=== PATIENT | male | born 1980 | race Caucasian/White ===

== ENCOUNTER 2018-02-06 00:39 | Inpatient (IN) ==
[2018-02-06 01:40] LABS: Bilirubin,Urine Negative (Negative); Blood,Urine Negative (Negative); Clarity,Urine Clear (Clear); Color,Urine Yellow (Yellow); Glucose,Urine (UA) Normal (Normal); Ketones,Urine Negative (Negative); Leukocyte Esterase,Urine Negative (Negative); Nitrite,Urine Negative (Negative); Protein,Urine Negative (Neg-Trace); Specific Gravity,Urine 1.018 (1.010-1.025); Urobilinogen,Urine Normal (Normal)
[2018-02-06 01:52] LABS: Amphetamine Screen,Urine Positive ng/mL (Cutoff=1000); Barbiturate Screen,Urine Negative ng/mL (Cutoff=200); Benzodiazepines Screen,Urine Negative ng/mL (Cutoff=200); Cannabinoid Screen,Urine Negative ng/mL (Cutoff = 50); Cocaine Screen,Urine Negative ng/mL (Cutoff= 300); Opiate Screen,Urine Negative ng/mL (Cutoff=300); Phencyclidine Screen,Urine Negative ng/mL (Cutoff=25)
[2018-02-06 01:52] LABS: Basophils # 0.1 K/mcL (0.0-0.2); Basophils % 0.8 %; Eosinophils # 0.1 K/mcL (0.0-0.6); Eosinophils % 1.2 %; Hematocrit 43.1 % (37.5-50.1); Hemoglobin 14.7 g/dL (12.9-16.9); Immature Granulocytes % 0.2 % (0-4); Lymphocytes % 21.6 %; Mean Corpuscular HGB Conc 34.1 g/dL (31.6-35.5); Mean Corpuscular Hemoglobin 30.2 pg (28.0-33.3); Mean Corpuscular Volume 88.7 fL (83.0-100.0); Mean Platelet Volume 10.6 fL (9.4-12.4); Monocytes # 0.5 K/mcL (0.0-1.3); Monocytes % 5.5 %; Neutrophils # 6.5 K/mcL (1.6-8.9); Platelet Count 285 K/mcL (140-400); Red Blood Count 4.86 M/mcL (4.19-5.50); Red Cell Distribution Width 11.9 % (11.5-14.5); Segmented Neutrophils % 70.7 %
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
[2018-02-06 02:23] LABS: Acetaminophen < 10 mcg/mL (10-20); BUN/Creatinine Ratio 17 (6-26); Blood Urea Nitrogen 13 mg/dL (6-20); Calcium 9.3 mg/dL (8.6-10.3); Carbon Dioxide 27 mEq/L (23-29); Chloride 104 mEq/L (98-107); Ethanol < 10 mg/dL (Less than 10); Glucose 108 mg/dL (70-105); Osmolality,Calculated 283 (280-300); Potassium 3.6 mEq/L (3.5-5.1); Salicylate < 2.5 mg/dL (15.0-30.0); Sodium 136 mEq/L (136-145); eGFR For Non-African Americans > 60 (> 60)
--- NOTE | 2018-02-06 03:52 | Emergency Department Note ---
Disposition Clinical Impression: Paranoia Disposition: Admitted As Inpatient Condition: Good General Adult HPI - General Chief complaint: ED Overdose Stated complaint: meth use/SI Time Seen by Provider: 02/06/18 00:42 Source: patient, EMS Limitations: no limitations Nursing Notes Reviewed: Yes Vital Signs Reviewed: Yes - History of Present Illness Pain Scale: 0 - Related Data Home Medications Medication Instructions Recorded Confirmed Buspirone HCl [Buspar] 15 mg PO TID 08/18/17 02/06/18 Paroxetine [Paxil] 40 mg PO DAILY 08/18/17 02/06/18 Previous Rx's Medication Instructions Recorded Propranolol HCl [Inderal LA] 160 mg PO DAILY #60 cap.sa.24h 03/24/17 risperiDONE [RisperDAL] 1 mg PO DAILY #60 tablet 03/24/17 Allergies Allergy/AdvReac Type Severity Reaction Status Date / Time meloxicam [From Mobic] Allergy See Verified 09/01/17 21:25 Comments Past Medical History - Past Medical History Medical history: Reports: hepatitis, hypertension, liver disease Surgical history: Reports: no surgical history Psychiatric history: Reports: depression - Social History Smoking Status: Current every day smoker Smokeless Tobacco Status: No Alcohol use: Reports: none Drug use: Reports: methamphetamine Physical Exam - General Limitations: no limitations General appearance: alert, in no apparent distress Course Vital Signs Temperature 98.7 F 02/06/18 00:43 Pulse Rate 96 02/06/18 00:43 Respiratory Rate 18 02/06/18 00:43 Blood Pressure 145/92 02/06/18 00:43 O2 Sat by Pulse Oximetry 99 02/06/18 00:43 Temperature 97.9 F 02/06/18 09:00 Pulse Rate 93 02/06/18 09:00 Respiratory Rate 18 02/06/18 09:00 Blood Pressure 121/70 02/06/18 09:00 O2 Sat by Pulse Oximetry 99 02/06/18 00:43 Oxygen Delivery Oxygen Delivery Room Air Medical Decision Making - Lab Data Lab results reviewed: Yes I reviewed the patient's lab results. Result diagrams: 02/06/18 01:43 02/06/18 01:43 Lab Results 02/06/18 02/06/18 02/06/18 Range/Units 01:10 01:10 01:43 WBC 9.2 (4.3-11.1) K/mcL RBC 4.86 (4.19-5.50) M/mcL Hgb 14.7 (12.9-16.9) g/dL Hct 43.1 (37.5-50.1) % MCV 88.7 (83.0-100.0) fL MCH 30.2 (28.0-33.3) pg MCHC 34.1 (31.6-35.5) g/dL RDW 11.9 (11.5-14.5) % Plt Count 285 (140-400) K/mcL MPV 10.6 (9.4-12.4) fL Immature Gran % 0.2 (0-4) % Seg Neutrophils % 70.7 % Lymphocytes % 21.6 % Monocytes % 5.5 % Eosinophils % 1.2 % Basophils % 0.8 % Neutrophils # 6.5 (1.6-8.9) K/mcL Lymphocytes # 2.0 (0.6-4.6) K/mcL Monocytes # 0.5 (0.0-1.3) K/mcL Eosinophils # 0.1 (0.0-0.6) K/mcL Basophils # 0.1 (0.0-0.2) K/mcL Sodium (136-145) mEq/L Potassium (3.5-5.1) mEq/L Chloride (98-107) mEq/L Carbon Dioxide (23-29) mEq/L BUN (6-20) mg/dL Creatinine (0.70-1.30) mg/dL Est GFR ( Amer) (> 60) Est GFR (Non-Af Amer) (> 60) BUN/Creatinine Ratio (6-26) Glucose (70-105) mg/dL Calculated Osmolality (280-300) Calcium (8.6-10.3) mg/dL Urine Color Yellow (Yellow) Urine Clarity Clear (Clear) Urine pH 8.0 (5.0-8.0) pH Units Ur Specific [place] 1.018 (1.010-1.025) Urine Protein Negative (Neg-Trace) mg/dL Urine Glucose (UA) Normal (Normal) mg/dL Urine Ketones Negative (Negative) mg/dL Urine Blood Negative (Negative) Urine Nitrite Negative (Negative) Urine Bilirubin Negative (Negative) Urine Urobilinogen Normal (Normal) mg/dL Ur Leukocyte Esterase Negative (Negative) Salicylates (15.0-30.0) mg/dL Urine Opiates Screen Negative (Flpuci=345) ng/mL Acetaminophen (10-20) mcg/mL Ur Barbiturates Screen Negative (Pqhwaw=071) ng/mL Ur Phencyclidine Scrn Negative (Cutoff=25) ng/mL Ur Amphetamines Screen Positive H (Ndumjq=1088) ng/mL U Benzodiazepines Scrn Negative (Aijdvk=783) ng/mL Urine Cocaine Screen Negative (Cutoff= 300) ng/mL U Marijuana (THC) Screen Negative (Cutoff = 50) ng/mL Ur Drug Screen Interp See Below Ethyl Alcohol (Less than 10) mg/dL 02/06/18 Range/Units 01:43 WBC (4.3-11.1) K/mcL RBC (4.19-5.50) M/mcL Hgb (12.9-16.9) g/dL Hct (37.5-50.1) % MCV (83.0-100.0) fL MCH (28.0-33.3) pg MCHC (31.6-35.5) g/dL RDW (11.5-14.5) % Plt Count (140-400) K/mcL MPV (9.4-12.4) fL Immature Gran % (0-4) % Seg Neutrophils % % Lymphocytes % % Monocytes % % Eosinophils % % Basophils % % Neutrophils # (1.6-8.9) K/mcL Lymphocytes # (0.6-4.6) K/mcL Monocytes # (0.0-1.3) K/mcL Eosinophils # (0.0-0.6) K/mcL Basophils # (0.0-0.2) K/mcL Sodium 136 (136-145) mEq/L Potassium 3.6 (3.5-5.1) mEq/L Chloride 104 (98-107) mEq/L Carbon Dioxide 27 (23-29) mEq/L BUN 13 (6-20) mg/dL Creatinine 0.76 (0.70-1.30) mg/dL Est GFR ( Amer) > 60 (> 60) Est GFR (Non-Af Amer) > 60 (> 60) BUN/Creatinine Ratio 17 (6-26) Glucose 108 H (70-105) mg/dL Calculated Osmolality 283 (280-300) Calcium 9.3 (8.6-10.3) mg/dL Urine Color (Yellow) Urine Clarity (Clear) Urine pH (5.0-8.0) pH Units Ur Specific [place] (1.010-1.025) Urine Protein (Neg-Trace) mg/dL Urine Glucose (UA) (Normal) mg/dL Urine Ketones (Negative) mg/dL Urine Blood (Negative) Urine Nitrite (Negative) Urine Bilirubin (Negative) Urine Urobilinogen (Normal) mg/dL Ur Leukocyte Esterase (Negative) Salicylates < 2.5 L (15.0-30.0) mg/dL Urine Opiates Screen (Kesypx=203) ng/mL Acetaminophen < 10 L (10-20) mcg/mL Ur Barbiturates Screen (Hgcjss=712) ng/mL Ur Phencyclidine Scrn (Cutoff=25) ng/mL Ur Amphetamines Screen (Wbyzwh=5192) ng/mL U Benzodiazepines Scrn (Qhkeob=857) ng/mL Urine Cocaine Screen (Cutoff= 300) ng/mL U Marijuana (THC) Screen (Cutoff = 50) ng/mL Ur Drug Screen Interp Ethyl Alcohol < 10 (Less than 10) mg/dL Attestation Statement - Attestation Attestation: I, Kalpesh Trent MD, personally evaluated this patient and discussed their management with the midlevel provicer, [employer]. I reviewed the midlevel provider 's note and agree with the documented findings, medical decision making, and plan of care. 37-year-old male presents to the emergency department complaining of paranoid ideations. He denies any suicidal or homicidal ideation. He denies visual or auditory hallucinations. Patient states that he is just having fearful thoughts and feels that everyone is out to get him an everyone is against him. On examination patient is a well-developed well-nourished well-appearing male in no acute distress. He is alert and oriented 3. There is no cyanosis or diaphoresis. Breath sounds are clear and equal bilaterally. Heart regular rate and rhythm. Abdomen soft and nontender with normal bowel sounds. No gross focal neurological deficits. Labs reviewed. Patient medically cleared for psychiatric evaluation. [address] psychiatry department was consulted and evaluated the patient in the emergency department and patient is being admitted to the [address] psychiatric unit. Castella slip signed.
[2018-02-06] MEDS ORDERED: *HR* LORazepam 1 MG TABLET PO PRN (04:30)
[2018-02-06] MEDS ORDERED: Mag Hydrox/Al Hydrox/Simeth 30 ML UDC PO PRN (04:30)
[2018-02-06] MEDS ORDERED: *HR* LORazepam 2 MG/ML VIAL IM PRN (04:30)
[2018-02-06] MEDS ORDERED: Haloperidol Lactate 5 MG/ML VIAL IM PRN (04:30)
[2018-02-06] MEDS ORDERED: MOM Conc 10 ML UD.LIQ PO PRN (04:30)
[2018-02-06] MEDS: risperiDONE 1 MG TABLET PO SCH (09:47)
[2018-02-06] MEDS: Nicotine 21 MG PATCH.TD24 TD SCH (09:47)
[2018-02-06] MEDS: hydrOXYzine pamoate 25 MG CAPSULE PO PRN ×2 (09:50→21:49)
--- NOTE | 2018-02-06 11:19 | Psychiatry History & Physical ---
Date of Encounter: 02/06/18 Time of Encounter: 11:13 History of Present Illness Patient Stated Chief Complaint: paranoia Medicare Admission Attestation: For traditional Medicare patients the provided hospital inpatient services are reasonable and necessary and in the case of services not specified as inpatient -only under 42 CFR 419.22 (n), that they are appropriately provided as inpatient services in accordance 42 CFR 412.3. For Critical Access Hospital the patient may reasonably be expected to be discharged or transferred to a hospital within 96 hours after admission to the Critical Access Hospital. Admitted From: Home Plans for Post Hospital Care: Home History of Present Illness: Mr. Matias is a 37 year old male who was admitted secondary to depression and paranoia. States he did meth a few days ago. Struggles with paranoia at baseline and amphetamines made symptoms worse. Denies AH/VH. Also denies SI but reports symptoms of not wanting to do anything, struggling to take care of himself, struggling to bathe, etc. Claims he has had mental health issues his entire life but that he was never treated prior to going to assisted. States he was diagnosed with depression in assisted and given Inderal, Risperdal, and "a couple others I can't remember the names of." States meds helped him. Did not follow up or continue meds once released from assisted approx 9 months ago. Father and sister have since his release adding to his depression. Client denies AOD use beyond recent meth use and taking Suboxone. States he is physically healthy except for Hep C and HTN. Willing to start an antidepressant in addition to the Risperdal which has already been ordered. Past Med Surg Social Fam HX - Past Medical History Medical history: hepatitis, hypertension, liver disease - Past Psychiatric History Psychiatric history: Reports: depression Family psychiatric history: Unknown Family History of Suicide: Unknown - Past Surgical History Surgical History: no surgical history - Social History Smoking Status: Current every day smoker Smokeless Tobacco Status: No Alcohol use: none Drug use: methamphetamine Medications & Allergies Propranolol HCl [Inderal LA] 160 mg PO DAILY #60 cap.sa.24h 03/24/17 [Rx] risperiDONE [RisperDAL] 1 mg PO DAILY #60 tablet 03/24/17 [Rx] Acetaminophen [Tylenol] 500 mg PO Q6HR PRN #20 tablet 08/08/17 [Rx] predniSONE [PredniSONE] 20 mg PO BID #10 tablet 08/08/17 [Rx] Benztropine Mesylate 0.5 mg PO HS 08/18/17 [History] Buspirone HCl [Buspar] 15 mg PO TID 08/18/17 [History] Ibuprofen [Motrin] 600 mg PO Q8HR PRN #20 tab 08/18/17 [Rx] Paroxetine [Paxil] 40 mg PO DAILY 08/18/17 [History] Venlafaxine HCl [Venlafaxine HCl ER] 37.5 mg PO DAILY 08/18/17 [History] Propranolol HCl [Inderal LA] 160 mg PO DAILY #30 cap.sa.24h 09/01/17 [Rx] Clotrimazole 1% CRM [Lotrimin 1%] 1 appl TP BID 14 Days #1 tube 01/09/18 [Rx] predniSONE [PredniSONE] 1 each PO DAILY 12 Days tablet 01/09/18 [Rx] 3 Allergy/AdvReac Type Severity Reaction Status Date / Time meloxicam [From [facility]] Allergy See Verified 09/01/17 21:25 Comments Review of Systems Constitutional: Denies: fever, chills, weakness, weight change Eyes: Denies: eye pain, vision change Ears, Nose, Throat: Denies: ear pain, throat pain, dental pain, hearing loss, congestion Cardiovascular: Denies: chest pain, palpitations, dyspnea on exertion Respiratory: Denies: cough, dyspnea, wheezes Gastrointestinal: Denies: abdominal pain, nausea, vomiting, diarrhea, constipation Genitourinary male: Denies: urgency, dysuria, frequency, genital lesions Musculoskeletal: Denies: joint swelling, joint pain Integumentary: Denies: rash, lesions, pruritus Neurological: Denies: headache, weakness, numbness, memory loss Endocrine: Denies: fatigue, heat or cold intolerance Hematologic/Lymphatic: Denies: easy bruising, lymphadenopathy Allergic/Immunologic: Denies: urticaria, itchy eyes Exam - HEENT Head exam IM: Present: atraumatic Eye exam IM: Present: EOMI, normal appearance, PERRL ENT exam IM: Present: normal exam - Neurological Neurological exam: Present: CN II-XII intact - Respiratory Respiratory exam IM: Present: CTAB - GI/Abdominal GI/Abdominal exam IM: Present: normal bowel sounds, soft. Absent: tenderness - Extremities Extremities exam IM: Present: full ROM - Skin Skin exam IM: Present: dry, warm - Constitutional Vitals: Temp Pulse Resp BP Pulse Ox 97.9 F 93 18 121/70 99 02/06/18 09:00 02/06/18 09:00 02/06/18 09:00 02/06/18 09:00 02/06/18 00:43 General appearance: age & developmentally appropriate - Musculoskeletal Gait: normal Station: relaxed Strength & Tone: normal for patient - Psychiatric Patient Orientation: Yes Person, Yes Time, Yes Place Level of alertness: Alert Behavior: calm, cooperative Psychomotor activity: Normal Eye Contact: Minimal Contact Mood Description: Depressed Affect description: congruent with mood Speech Volume: Normal Speech pattern: normal rate, normal rhythm, normal tone, fluent, spontaneous Language & Vocabulary: consistent with education Thought Process: Linear Thought Content: No Suicidal ideation, No Homicidal ideation, Yes Paranoid delusion Perceptual Disturbances: No Auditory hallucinations, No Visual hallucinations Attention Span Ability: Capable of Focused Attention Memory Description: Grossly Intact Patient Reliability: Reliable Historian Fund of knowledge: Yes abstraction ability, Yes average, Yes aware of current events Intelligence Estimate: Below Average Judgment: Limited Insight: Partial Results - Labs Labs: Laboratory Last Values WBC 9.2 K/mcL (4.3-11.1) 02/06/18 01:43 RBC 4.86 M/mcL (4.19-5.50) 02/06/18 01:43 Hgb 14.7 g/dL (12.9-16.9) 02/06/18 01:43 Hct 43.1 % (37.5-50.1) 02/06/18 01:43 MCV 88.7 fL (83.0-100.0) 02/06/18 01:43 MCH 30.2 pg (28.0-33.3) 02/06/18 01:43 MCHC 34.1 g/dL (31.6-35.5) 02/06/18 01:43 RDW 11.9 % (11.5-14.5) 02/06/18 01:43 Plt Count 285 K/mcL (140-400) 02/06/18 01:43 MPV 10.6 fL (9.4-12.4) 02/06/18 01:43 Immature Gran % 0.2 % (0-4) 02/06/18 01:43 Seg Neutrophils % 70.7 % 02/06/18 01:43 Lymphocytes % 21.6 % 02/06/18 01:43 Monocytes % 5.5 % 02/06/18 01:43 Eosinophils % 1.2 % 02/06/18 01:43 Basophils % 0.8 % 02/06/18 01:43 Neutrophils # 6.5 K/mcL (1.6-8.9) 02/06/18 01:43 Lymphocytes # 2.0 K/mcL (0.6-4.6) 02/06/18 01:43 Monocytes # 0.5 K/mcL (0.0-1.3) 02/06/18 01:43 Eosinophils # 0.1 K/mcL (0.0-0.6) 02/06/18 01:43 Basophils # 0.1 K/mcL (0.0-0.2) 02/06/18 01:43 Sodium 136 mEq/L (136-145) 02/06/18 01:43 Potassium 3.6 mEq/L (3.5-5.1) 02/06/18 01:43 Chloride 104 mEq/L (98-107) 02/06/18 01:43 Carbon Dioxide 27 mEq/L (23-29) 02/06/18 01:43 BUN 13 mg/dL (6-20) 02/06/18 01:43 Creatinine 0.76 mg/dL (0.70-1.30) 02/06/18 01:43 Est GFR ( Amer) > 60 (> 60) 02/06/18 01:43 Est GFR (Non-Af Amer) > 60 (> 60) 02/06/18 01:43 BUN/Creatinine Ratio 17 (6-26) 02/06/18 01:43 Glucose 108 mg/dL (70-105) H 02/06/18 01:43 Calculated Osmolality 283 (280-300) 02/06/18 01:43 Calcium 9.3 mg/dL (8.6-10.3) 02/06/18 01:43 Urine Color Yellow (Yellow) 02/06/18 01:10 Urine Clarity Clear (Clear) 02/06/18 01:10 Urine pH 8.0 pH Units (5.0-8.0) 02/06/18 01:10 Ur Specific [place] 1.018 (1.010-1.025) 02/06/18 01:10 Urine Protein Negative mg/dL (Neg-Trace) 02/06/18 01:10 Urine Glucose (UA) Normal mg/dL (Normal) 02/06/18 01:10 Urine Ketones Negative mg/dL (Negative) 02/06/18 01:10 Urine Blood Negative (Negative) 02/06/18 01:10 Urine Nitrite Negative (Negative) 02/06/18 01:10 Urine Bilirubin Negative (Negative) 02/06/18 01:10 Urine Urobilinogen Normal mg/dL (Normal) 02/06/18 01:10 Ur Leukocyte Esterase Negative (Negative) 02/06/18 01:10 Salicylates < 2.5 mg/dL (15.0-30.0) L 02/06/18 01:43 Urine Opiates Screen Negative ng/mL (Lwmlnu=918) 02/06/18 01:10 Acetaminophen < 10 mcg/mL (10-20) L 02/06/18 01:43 Ur Barbiturates Screen Negative ng/mL (Gkccum=282) 02/06/18 01:10 Ur Phencyclidine Scrn Negative ng/mL (Cutoff=25) 02/06/18 01:10 Ur Amphetamines Screen Positive ng/mL (Xyspyv=9845) H 02/06/18 01:10 U Benzodiazepines Scrn Negative ng/mL (Eglvyh=650) 02/06/18 01:10 Urine Cocaine Screen Negative ng/mL (Cutoff= 300) 02/06/18 01:10 U Marijuana (THC) Screen Negative ng/mL (Cutoff = 50) 02/06/18 01:10 Ur Drug Screen Interp See Below 02/06/18 01:10 Ethyl Alcohol < 10 mg/dL (Less than 10) 02/06/18 01:43 Assessment and Plan (1) Major depression with psychotic features Current visit: Yes Status: Acute Plan: Admit inpatient for safety and stabilization, Close observation, Suicide Precautions per unit protocol, Encourage participation in unit milieu, Group Therapy, Monitor sleep, Monitor appetite Risks, benefits, side effects, alternatives discussed w/pt: Yes Patient agreeable to treatment: Yes Plans for Post Hospital Care: Home Estimated Length of Stay (Days): 4 (2) Substance-induced psychotic disorder Current visit: Yes Status: Acute Plan: Admit inpatient for safety and stabilization, Close observation, Suicide Precautions per unit protocol, Encourage participation in unit milieu, Group Therapy, Monitor sleep, Monitor appetite Risks, benefits, side effects, alternatives discussed w/pt: Yes Patient agreeable to treatment: Yes Plans for Post Hospital Care: Home Estimated Length of Stay (Days): 4
[2018-02-06] MEDS: traZODone 50 MG TABLET PO PRN (21:49)
[2018-02-07] MEDS: Nicotine 21 MG PATCH.TD24 TD SCH (09:18)
[2018-02-07] MEDS: risperiDONE 1 MG TABLET PO SCH (09:18)
[2018-02-07] MEDS: Ibuprofen 400 MG TABLET PO PRN ×2 (09:19→23:52)
--- NOTE | 2018-02-07 10:57 | Psychiatry Progress Note ---
Date of Encounter: 02/07/18 Time of Encounter: 10:30 Subjective Interval history: Patient seen today , case d/w treatment team , he remains psychotic as per team and anxious. he has poor eye contact and poor historian , he was on paxil and buspar along with risperdal , he states paxil and buspar do not help so he does not take them. states he used meth once , lives with family, on parole , unemployed gets SSI. he is at present feeling tired, paranoid, everybody is out to get me, poor eye contact , some what dishelved and internally preoccupied. states i do not feel good i want to go to my room. risperdal was increased , will increase zoloft to 50 mg at present need to continue inpatient stabilization. Review of Systems Psychiatric: Reports: depression, abnormal sleep pattern, hopelessness, irritability Results - Vital Signs Vital Signs: Temp Pulse Resp BP Pulse Ox 98.6 F 105 16 128/88 99 02/07/18 09:00 02/07/18 09:00 02/07/18 09:00 02/07/18 09:00 02/06/18 00:43 Assessment and Plan (1) Major depression with psychotic features Current visit: Yes Status: Acute Plan: Continue hospitalization, Close observation, Suicide Precautions per unit protocol, Encourage participation in unit milieu, Group Therapy, Monitor sleep, Monitor appetite, Family/Supportive other meeting Risks, benefits, side effects, alternatives discussed w/pt: Yes Patient agreeable to treatment: Yes (2) Substance-induced psychotic disorder Current visit: Yes Status: Acute Plan: Continue hospitalization, Close observation, Suicide Precautions per unit protocol, Encourage participation in unit milieu, Group Therapy, Monitor sleep, Monitor appetite, Secure weapons, Family/Supportive other meeting Risks, benefits, side effects, alternatives discussed w/pt: Yes Patient agreeable to treatment: Yes Consult Discharge Plan - Plan Referrals: NONE,PCP [Primary Care Provider] - Psychiatry Exam - Constitutional Vitals: Temp Pulse Resp BP Pulse Ox 98.6 F 105 16 128/88 99 02/07/18 09:00 02/07/18 09:00 02/07/18 09:00 02/07/18 09:00 02/06/18 00:43 General appearance: disheveled, average - Musculoskeletal Gait: slow Station: stooped Strength & Tone: normal for patient - Psychiatric Patient Orientation: Yes Person, Yes Place Level of alertness: Alert Behavior: restless, uncooperative, guarded Psychomotor activity: Increased Eye Contact: No Eye Contact Mood Description: Depressed, Anxious, Irritable Affect description: blunted Speech Volume: Soft/Quiet Speech pattern: slowed Language & Vocabulary: limited Thought Process: Thought Blocking, Slowed Thinking Thought Content: Yes Preoccupation, Yes Paranoid delusion, Yes Guilt Attention Span Ability: Unable to Sustain Attention Memory Description: Grossly Intact Patient Reliability: Questionable Historian Fund of knowledge: Yes average Intelligence Estimate: Average Judgment: Poor Insight: Minimal
[2018-02-07] MEDS: traZODone 50 MG TABLET PO PRN (21:06)
[2018-02-07] MEDS: hydrOXYzine pamoate 25 MG CAPSULE PO PRN (21:06)
[2018-02-08] MEDS: risperiDONE 1 MG TABLET PO SCH (09:23)
[2018-02-08] MEDS: Nicotine 21 MG PATCH.TD24 TD SCH (09:23)
--- NOTE | 2018-02-08 10:37 | Psychiatry Progress Note ---
Date of Encounter: 02/08/18 Time of Encounter: 10:15 Subjective Interval history: Patient seen today , case d/w treatment team , patient is very anxious, restless and states did not sleep well, he is restless, his pulse is 114 , AND HE IS PROBABly going thru withdrawl as was getting suboxone from streets used daily for 1/2 - 1 /day , states he was prescribed suboxone for long time then went to longterm and was buying there , he came out of longterm and has been using it. he has poor eye contact , depress, sad , worthless and anxious, he had 2 deaths in family , his sister of OD this year and his father passed 7 months ago of cancer , he is preoccupied with his paranoia and remains delusional denies a/ v hallucinations , denies suicidal ideation , no homicidal ideation. at present will give depakote 250 mg bid and ativan 1 mg tid , will taper slowly. for his withdrawls and anxiety. Review of Systems Psychiatric: Reports: depression, anxiety, abnormal sleep pattern, difficulty concentrating, hopelessness, irritability Results - Vital Signs Vital Signs: Temp Pulse Resp BP Pulse Ox 99.1 F 114 18 113/85 99 02/08/18 09:00 02/08/18 09:00 02/08/18 09:00 02/08/18 09:00 02/06/18 00:43 Assessment and Plan (1) Major depression with psychotic features Current visit: Yes Status: Acute Risks, benefits, side effects, alternatives discussed w/pt: Yes Patient agreeable to treatment: Yes (2) Substance-induced psychotic disorder Current visit: Yes Status: Acute Risks, benefits, side effects, alternatives discussed w/pt: Yes Patient agreeable to treatment: Yes Consult Discharge Plan - Plan Referrals: [facility] [Outside] - 02/15/18 2:00 pm (The above appointment is with Lissy Pastor for substance abuse and mental health counselling. You will also see Vee Nayak on 03/08/2018 at 3:15pm for psychiatric assessment and medication management. Please bring photo ID and proof of insurance.) Psychiatry Exam - Constitutional Vitals: Temp Pulse Resp BP Pulse Ox 99.1 F 114 18 113/85 99 02/08/18 09:00 02/08/18 09:00 02/08/18 09:00 02/08/18 09:00 02/06/18 00:43 General appearance: unkempt - Musculoskeletal Gait: normal Station: shaky Strength & Tone: normal for patient - Psychiatric Patient Orientation: Yes Person, Yes Time, Yes Place Level of alertness: Alert Behavior: anxious, restless, distractible Psychomotor activity: Slowed Eye Contact: No Eye Contact Mood Description: Depressed, Anxious Affect description: congruent with mood Speech Volume: Soft/Quiet Speech pattern: slowed Language & Vocabulary: limited Thought Process: Slowed Thinking Thought Content: Yes Preoccupation, Yes Paranoid delusion, Yes Guilt Attention Span Ability: Unable to Sustain Attention Memory Description: Grossly Intact Patient Reliability: Reliable Historian Fund of knowledge: Yes average Intelligence Estimate: Average Judgment: Limited Insight: Partial
[2018-02-08] MEDS: *HR* LORazepam 1 MG TABLET PO SCH ×2 (14:30→20:42)
[2018-02-08] MEDS: Ibuprofen 400 MG TABLET PO PRN (20:42)
[2018-02-08] MEDS: hydrOXYzine pamoate 25 MG CAPSULE PO PRN (20:42)
[2018-02-08] MEDS: Divalproex (12 HR) 250 MG TABLET PO SCH (20:42)
[2018-02-08] MEDS: traZODone 50 MG TABLET PO PRN (20:43)
[2018-02-09] MEDS: Nicotine 21 MG PATCH.TD24 TD SCH (09:04)
[2018-02-09] MEDS: risperiDONE 1 MG TABLET PO SCH (09:05)
[2018-02-09] MEDS: Divalproex (12 HR) 250 MG TABLET PO SCH ×2 (09:05→20:31)
[2018-02-09] MEDS: *HR* LORazepam 1 MG TABLET PO SCH ×3 (09:06→20:31)
[2018-02-09] MEDS ORDERED: *HR* LORazepam 1 MG TABLET PO ONE ×2 (09:51→19:35)
--- NOTE | 2018-02-09 10:59 | Psychiatry Progress Note ---
Date of Encounter: 02/09/18 Time of Encounter: 10:34 Subjective Interval history: Patient seen today , case d/w treatment team , his pulse was 137 last night and today it is 120 , he is anxious going thru withdrawal and admitted to being paranoid that people out to get him , he has no eye contact and blunt affect , he is isolative and depress, he is denying suicidal ideation but no motivation and guilt present. will contiue ativan tid and prn counseled patient about Naltrexone and he agreed with plan. Review of Systems Psychiatric: Reports: depression, anxiety, abnormal sleep pattern, difficulty concentrating, hopelessness, irritability Results - Vital Signs Vital Signs: Temp Pulse Resp BP Pulse Ox 98.5 F 124 16 132/85 99 02/09/18 09:00 02/09/18 09:00 02/09/18 09:00 02/09/18 09:00 02/06/18 00:43 Assessment and Plan (1) Major depression with psychotic features Current visit: Yes Status: Acute Risks, benefits, side effects, alternatives discussed w/pt: Yes Patient agreeable to treatment: Yes (2) Substance-induced psychotic disorder Current visit: Yes Status: Acute Risks, benefits, side effects, alternatives discussed w/pt: Yes Patient agreeable to treatment: Yes (3) Opiate dependence Current visit: Yes Status: Chronic Plan: Continue hospitalization, Close observation, Suicide Precautions per unit protocol, Encourage participation in unit milieu, Group Therapy, Monitor sleep, Monitor appetite, Family/Supportive other meeting Risks, benefits, side effects, alternatives discussed w/pt: Yes Patient agreeable to treatment: Yes Qualifiers: Substance use status: in withdrawal Qualified Code(s): F11.23 - Opioid dependence with withdrawal Consult Discharge Plan - Plan Referrals: [facility] [Outside] - 02/15/18 2:00 pm (The above appointment is with Lissy Pastor for substance abuse and mental health counselling. You will also see Vee Nayak on 03/08/2018 at 3:15pm for psychiatric assessment and medication management. Please bring photo ID and proof of insurance.) Psychiatry Exam - Constitutional Vitals: Temp Pulse Resp BP Pulse Ox 98.5 F 124 16 132/85 99 02/09/18 09:00 02/09/18 09:00 02/09/18 09:00 02/09/18 09:00 02/06/18 00:43 General appearance: age & developmentally appropriate, unkempt - Musculoskeletal Gait: slow Station: stooped Strength & Tone: normal for patient - Psychiatric Patient Orientation: Yes Person, Yes Time, Yes Place Level of alertness: Alert Behavior: anxious, restless, guarded, withdrawn Psychomotor activity: Slowed Eye Contact: No Eye Contact Mood Description: Depressed, Anxious Affect description: blunted Speech Volume: Soft/Quiet Speech pattern: slowed Language & Vocabulary: limited Thought Process: Slowed Thinking Thought Content: Yes Preoccupation, Yes Paranoid delusion Attention Span Ability: Unable to Sustain Attention Memory Description: Grossly Intact Patient Reliability: Reliable Historian Fund of knowledge: Yes average Intelligence Estimate: Average Judgment: Limited Insight: Partial
[2018-02-09] MEDS: cloNIDine HCl 0.1 MG TABLET PO SCH (19:52)
[2018-02-10] MEDS: Divalproex (12 HR) 250 MG TABLET PO SCH (09:14)
[2018-02-10] MEDS: *HR* LORazepam 1 MG TABLET PO SCH ×2 (09:14→20:20)
[2018-02-10] MEDS: cloNIDine HCl 0.1 MG TABLET PO SCH (09:14)
[2018-02-10] MEDS: Nicotine 21 MG PATCH.TD24 TD SCH (09:15)
[2018-02-10] MEDS: risperiDONE 1 MG TABLET PO SCH (09:15)
--- NOTE | 2018-02-10 09:48 | Psychiatry Progress Note ---
Date of Encounter: 02/10/18 Time of Encounter: 09:15 Subjective Interval history: Patient seen today case d/w treatment team , he still has high pulse and blood pressure is fine. As per patient he has h/o tacchycardia and was on propranolol. he denies any suicidal thoughts , denies any homicidal , no psychosis, looks dysphoric and poor eye contact.descibes his mood at 5 he wants to go to out patient clinic and suboxone clinic. will start tapering ativan and start propranolol. patient agreed with the plan. Review of Systems Psychiatric: Reports: depression, anxiety, abnormal sleep pattern, difficulty concentrating, hopelessness Results - Vital Signs Vital Signs: Temp Pulse Resp BP Pulse Ox 97.8 F 109 14 96/70 99 02/10/18 05:51 02/10/18 05:51 02/10/18 05:51 02/10/18 05:51 02/06/18 00:43 Assessment and Plan (1) Major depression with psychotic features Current visit: Yes Status: Acute Risks, benefits, side effects, alternatives discussed w/pt: Yes Patient agreeable to treatment: Yes (2) Substance-induced psychotic disorder Current visit: Yes Status: Acute Risks, benefits, side effects, alternatives discussed w/pt: Yes Patient agreeable to treatment: Yes (3) Opiate dependence Current visit: Yes Status: Chronic Risks, benefits, side effects, alternatives discussed w/pt: Yes Patient agreeable to treatment: Yes Qualifiers: Substance use status: in withdrawal Qualified Code(s): F11.23 - Opioid dependence with withdrawal Consult Discharge Plan - Plan Referrals: [facility] [Other] - 02/16/18 7:30 am (This appointment is to start Suboxone treatment. Please bring your photo ID. This appointment will last 3 hours and you will start your medication the same day. You will come to the office Mondays through Saturdays for daily dosing. You will receive your dose for Sundays every Wednesday. Weekly group and random drug screens are required in the program. Your medicaid coverage pays for 100% of your treatment and medication. ) [facility] [Outside] - 02/15/18 2:00 pm (The above appointment is with Lissy Pastor for substance abuse and mental health counselling. You will also see Vee Nayak on 03/08/2018 at 3:15pm for psychiatric assessment and medication management. Please bring photo ID and proof of insurance.) Psychiatry Exam - Constitutional Vitals: Temp Pulse Resp BP Pulse Ox 97.8 F 109 14 96/70 99 02/10/18 05:51 02/10/18 05:51 02/10/18 05:51 02/10/18 05:51 02/06/18 00:43 General appearance: age & developmentally appropriate - Musculoskeletal Gait: slow Station: other Strength & Tone: normal for patient - Psychiatric Patient Orientation: Yes Person, Yes Time, Yes Place Level of alertness: Alert Behavior: cooperative, withdrawn Psychomotor activity: Slowed Eye Contact: Minimal Contact Mood Description: Depressed, Anxious Affect description: congruent with mood, dysphoric Speech Volume: Soft/Quiet Speech pattern: slowed Language & Vocabulary: consistent with education Thought Process: Slowed Thinking Thought Content: Yes Guilt Perceptual Disturbances: No Auditory hallucinations, No Visual hallucinations Attention Span Ability: Unable to Sustain Attention Memory Description: Grossly Intact Patient Reliability: Reliable Historian Fund of knowledge: Yes average Intelligence Estimate: Average Judgment: Limited Insight: Partial
[2018-02-10] MEDS: Ibuprofen 400 MG TABLET PO PRN (20:19)
[2018-02-10] MEDS: Divalproex (12 HR) 500 MG TABLET PO SCH (20:20)
[2018-02-10] MEDS: hydrOXYzine pamoate 25 MG CAPSULE PO PRN (20:20)
[2018-02-10] MEDS: traZODone 50 MG TABLET PO PRN (20:21)
[2018-02-11] MEDS: Nicotine 21 MG PATCH.TD24 TD SCH (09:56)
[2018-02-11] MEDS: Divalproex (12 HR) 500 MG TABLET PO SCH ×2 (09:57→20:13)
[2018-02-11] MEDS: risperiDONE 1 MG TABLET PO SCH (09:57)
[2018-02-11] MEDS: *HR* LORazepam 1 MG TABLET PO SCH ×2 (09:57→20:13)
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
[2018-02-11] MEDS: hydrOXYzine pamoate 25 MG CAPSULE PO PRN (20:13)
[2018-02-11] MEDS: traZODone 50 MG TABLET PO PRN (20:13)
[2018-02-12] MEDS: risperiDONE 1 MG TABLET PO SCH (10:18)
[2018-02-12] MEDS: Divalproex (12 HR) 500 MG TABLET PO SCH ×2 (10:18→20:07)
[2018-02-12] MEDS: Nicotine 21 MG PATCH.TD24 TD SCH (10:18)
[2018-02-12] MEDS: *HR* LORazepam 1 MG TABLET PO SCH ×2 (10:18→20:07)
--- NOTE | 2018-02-12 11:58 | Psychiatry Progress Note ---
Date of Encounter: 02/12/18 Time of Encounter: 11:45 Subjective Interval history: ID the patient is a 37-year-old white male. He was admitted voluntarily. Chief complaint no sir I do not want to talk right now. History of present illness. The patient was seen at bedside around noon time he did not want o'clock for lunch and he did not want to come and meet with me. He indicated that he was happy with his current regimen of medicines and 1 stay on that. He wanted to sleep some more and maybe talk to me later in the day history of present illness. The patient has been positive for methamphetamine. He has had a diagnosis of paranoia and this may be the level of psychosis. The patient has reported problems with opiate dependence and will be seen at [place] for evaluation of Suboxone. Currently he is on a variety of medicines for PTSD and other symptoms including mnipress & sertraline. The patient had a diagnosis of major depressive disorder single episode with psychosis as his primary diagnosis. 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 Current visit: Yes Status: Acute Plan: Close observation, Suicide Precautions per unit protocol, Monitor appetite Risks, benefits, side effects, alternatives discussed w/pt: Yes Patient agreeable to treatment: Yes (2) Major depression with psychotic features Current visit: Yes Status: Acute Plan: Continue hospitalization, Close observation, Suicide Precautions per unit protocol, Encourage participation in unit milieu, Secure weapons Risks, benefits, side effects, alternatives discussed w/pt: Yes Patient agreeable to treatment: Yes (3) Opiate dependence Current visit: Yes Status: Chronic Plan: Group Therapy, Family/Supportive other meeting Risks, benefits, side effects, alternatives discussed w/pt: Yes Patient agreeable to treatment: Yes Qualifiers: Substance use status: with opioid-induced mood disorder Qualified Code(s): F11.24 - Opioid dependence with opioid-induced mood disorder (4) PTSD (post-traumatic stress disorder) Current visit: Yes Status: Chronic Plan: Continue hospitalization, Close observation, Secure weapons Risks, benefits, side effects, alternatives discussed w/pt: Yes Patient agreeable to treatment: Yes Consult Discharge Plan - Plan Referrals: [facility] [Other] - 02/16/18 7:30 am (This appointment is to start Suboxone treatment. Please bring your photo ID. This appointment will last 3 hours and you will start your medication the same day. You will come to the office Mondays through Saturdays for daily dosing. You will receive your dose for Sundays every Wednesday. Weekly group and random drug screens are required in the program. Your medicaid coverage pays for 100% of your treatment and medication. ) [facility] - 02/15/18 2:00 pm (The above appointment is with Lissy Pastor for substance abuse and mental health counselling. You will also see Vee Nael on 03/08/2018 at 3:15pm for psychiatric assessment and medication management. Please bring photo ID and proof of insurance.) Psychiatry Exam - Constitutional Vitals: Temp Pulse Resp BP Pulse Ox 97.2 F L 101 18 128/90 99 02/12/18 09:00 02/12/18 09:00 02/12/18 09:00 02/12/18 09:00 02/06/18 00:43 General appearance: age & developmentally appropriate, average - Musculoskeletal Station: relaxed - Psychiatric Patient Orientation: Yes Person, Yes Time, Yes Place, Yes Circumstance Level of alertness: Sedated Behavior: withdrawn Psychomotor activity: Slowed Eye Contact: Minimal Contact Mood Description: Depressed Affect description: congruent with mood Speech Volume: Soft/Quiet Speech pattern: normal rhythm Thought Content: Yes Paranoid delusion Attention Span Ability: Capable of Sustained Attention Patient Reliability: Questionable Historian Fund of knowledge: Yes average Judgment: Limited Insight: Minimal
[2018-02-12] MEDS: hydrOXYzine pamoate 25 MG CAPSULE PO PRN (20:07)
[2018-02-12] MEDS: traZODone 50 MG TABLET PO PRN (20:07)
--- NOTE | 2018-02-13 11:51 | Psychiatry Progress Note ---
Date of Encounter: 02/13/18 Time of Encounter: 10:45 Subjective Interval history: The patient is a 37-year-old white male. He was seen in his room Chief complaint: I am doing okay and I will have any side effects and only get up and talk right now. History of present illness. The patient did not take part in groups and he tends to be seen at mealtime. He is tolerating medicines. The patient did not wish to engage in a full interview this morning but may be seen in the afternoon. 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 Current visit: Yes Status: Acute Plan: Encourage participation in unit milieu Risks, benefits, side effects, alternatives discussed w/pt: Yes Patient agreeable to treatment: Yes (2) Major depression with psychotic features Current visit: Yes Status: Acute Plan: Monitor appetite, Secure weapons, Family/Supportive other meeting Risks , benefits, side effects, alternatives discussed w/pt: Yes Patient agreeable to treatment: Yes (3) Opiate dependence Current visit: Yes Status: Chronic Plan: Group Therapy, Monitor sleep Risks, benefits, side effects, alternatives discussed w/pt: Yes Patient agreeable to treatment: Yes Qualifiers: Substance use status: with opioid-induced mood disorder Qualified Code(s): F11.24 - Opioid dependence with opioid-induced mood disorder (4) PTSD (post-traumatic stress disorder) Current visit: Yes Status: Chronic Plan: Continue hospitalization, Close observation, Monitor appetite Risks, benefits, side effects, alternatives discussed w/pt: Yes Patient agreeable to treatment: Yes Consult Discharge Plan - Plan Referrals: [facility] [Other] - 02/16/18 7:30 am (This appointment is to start Suboxone treatment. Please bring your photo ID. This appointment will last 3 hours and you will start your medication the same day. You will come to the office Mondays through Saturdays for daily dosing. You will receive your dose for Sundays every Wednesday. Weekly group and random drug screens are required in the program. Your medicaid coverage pays for 100% of your treatment and medication. ) [facility] [Outside] - 02/15/18 2:00 pm (The above appointment is with Lissy Pastor for substance abuse and mental health counselling. You will also see Vee Nayak on 03/08/2018 at 3:15pm for psychiatric assessment and medication management. Please bring photo ID and proof of insurance.) Psychiatry Exam - Constitutional Vitals: Temp Pulse Resp BP Pulse Ox 98.3 F 91 20 119/84 99 02/12/18 19:45 02/12/18 22:50 02/12/18 19:45 02/12/18 19:45 02/06/18 00:43 General appearance: age & developmentally appropriate, well-groomed, well- nourished - Musculoskeletal Station: relaxed - Psychiatric Patient Orientation: Yes Person, Yes Time, Yes Place Level of alertness: Alert Behavior: calm, uncooperative, guarded Psychomotor activity: Slowed Eye Contact: Minimal Contact Mood Description: Depressed Affect description: congruent with mood, dysphoric Speech Volume: Normal Speech pattern: normal rate, normal rhythm, normal tone, fluent, spontaneous Language & Vocabulary: consistent with education Thought Process: Linear, Goal Oriented Thought Content: No Suicidal ideation, No Homicidal ideation, No Overt delusions Perceptual Disturbances: Yes Auditory hallucinations, No Visual hallucinations Attention Span Ability: Capable of Sustained Attention Memory Description: Grossly Intact Patient Reliability: Questionable Historian Fund of knowledge: Yes abstraction ability, Yes average Intelligence Estimate: Average Judgment: Limited Insight: Minimal
[2018-02-13] MEDS: Divalproex (12 HR) 500 MG TABLET PO SCH ×2 (12:21→20:38)
[2018-02-13] MEDS: Nicotine 21 MG PATCH.TD24 TD SCH (12:21)
[2018-02-13] MEDS: *HR* LORazepam 1 MG TABLET PO SCH ×2 (12:21→20:38)
[2018-02-13] MEDS: risperiDONE 1 MG TABLET PO SCH (12:21)
[2018-02-14] MEDS: Ibuprofen 400 MG TABLET PO PRN (00:41)
[2018-02-14] MEDS: hydrOXYzine pamoate 25 MG CAPSULE PO PRN (00:41)
[2018-02-14] MEDS: risperiDONE 1 MG TABLET PO SCH (09:25)
[2018-02-14] MEDS: Divalproex (12 HR) 500 MG TABLET PO SCH (09:26)
[2018-02-14] MEDS: *HR* LORazepam 1 MG TABLET PO SCH (09:26)
[2018-02-14] MEDS: Nicotine 21 MG PATCH.TD24 TD SCH (09:26)
[2018-02-14 09:29] VITALS: BP 117/79
--- NOTE | 2018-02-14 12:21 | Discharge Summary ---
Date of Encounter: 02/14/18 Time of Encounter: 12:13 Medications - Discharge Medications Prescriptions: Buspirone HCl [Buspar] 15 mg PO TID #90 tablet Divalproex (12 HR) [Depakote (12 HR)] 500 mg PO BID #60 tablet. Paroxetine [Paxil] 40 mg PO DAILY #60 tablet Prazosin [Minipress] 1 mg PO HS #30 capsule risperiDONE [RisperDAL] 2 mg PO DAILY #60 tablet Propranolol HCl [Inderal LA] 160 mg PO DAILY #60 cap.sa.24h 03/24/17 [Rx] Buspirone HCl [Buspar] 15 mg PO TID #90 tablet 02/14/18 [Rx] Divalproex (12 HR) [Depakote (12 HR)] 500 mg PO BID #60 tablet. 02/14/18 [Rx] Paroxetine [Paxil] 40 mg PO DAILY #60 tablet 02/14/18 [Rx] Prazosin [Minipress] 1 mg PO HS #30 capsule 02/14/18 [Rx] risperiDONE [RisperDAL] 2 mg PO DAILY #60 tablet 02/14/18 [Rx] 3 Allergy/AdvReac Type Severity Reaction Status Date / Time meloxicam [From Mobic] Allergy See Verified 09/01/17 21:25 Comments Provider Date of admission: 02/06/18 03:37 Primary care physician: PCP NONE Consults: 02/06/18 04:21 Consult to Pastoral Services [CONS] Routine Comment: Per pt request 02/11/18 13:12 Consult to Hospitalist [CONS] Routine Consulting Provider: Hospitalist Juliana Reason for Consult: tachycardia, uncontrolled on Lopressor therapy. Message sent through GetFeedback Time Notified: 13:13 Call Completed: Yes Discharging clinician: Nicholas Lockwood Psychiatry Exam - Constitutional Vitals: Temp Pulse Resp BP Pulse Ox 97.5 F L 101 18 117/79 99 02/14/18 09:00 02/14/18 09:00 02/14/18 09:00 02/14/18 09:00 02/06/18 00:43 General appearance: age & developmentally appropriate, well-groomed, well- nourished, thin - Musculoskeletal Gait: normal Station: relaxed Strength & Tone: normal for patient - Psychiatric Patient Orientation: Yes Person, Yes Time, Yes Place Level of alertness: Alert Behavior: calm, cooperative Psychomotor activity: Normal Eye Contact: Minimal Contact Mood Description: Euthymic/stable, Depressed Affect description: congruent with mood, full range Speech Volume: Normal Speech pattern: normal rate, normal rhythm, normal tone, fluent, spontaneous Language & Vocabulary: consistent with education Thought Process: Linear, Goal Oriented Thought Content: No Suicidal ideation, No Homicidal ideation, No Overt delusions Perceptual Disturbances: No Auditory hallucinations, No Visual hallucinations Attention Span Ability: Capable of Focused Attention Memory Description: Grossly Intact Patient Reliability: Reliable Historian Fund of knowledge: Yes abstraction ability, Yes aware of current events Intelligence Estimate: Average Judgment: Limited Insight: Partial Hospital Course Hospital course: Mr. Matias is a 37 year old male admitted for depression and paranoia, and amphetamine abuse. For details of the admission please see H&P On the unit patient was reported to be isolating in his room most of the time, not participating in groups, he was medication compliant. He reported improved sleep and appetite. cardroom worker contacted his family to discuss discharge plans and future appointments. On discharge patient was medically stable, tolerating medication without any side effects. Interested in outpatient substance abuse treatment and mental health's counseling. Denies suicidal or homicidal ideation, denied any paranoia or hallucinations. He is discharged in stable condition. - Time Spent with Patient Total time spent providing and/or coordinating discharge services: Greater than 30 minutes Assessment and Plan - Patient/Caregiver Discharge Instructions Activity: resume usual activities as tolerated Diet: regular diet - Follow up Plan Follow up with: [facility] [Other] - 02/16/18 7:30 am (This appointment is to start Suboxone treatment. Please bring your photo ID. This appointment will last 3 hours and you will start your medication the same day. You will come to the office Mondays through Saturdays for daily dosing. You will receive your dose for Sundays every Wednesday. Weekly group and random drug screens are required in the program. Your medicaid coverage pays for 100% of your treatment and medication. ) [facility] [Outside] - 02/15/18 2:00 pm (The above appointment is with Lissy Pastor for substance abuse and mental health counselling. You will also see Vee Nayak on 03/08/2018 at 3:15pm for psychiatric assessment and medication management. Please bring photo ID and proof of insurance.) Functional capacity at discharge: independent ambulation Overall status at discharge: Stable Disposition: Home, Self-Care Quality - Multiple Antipsychotics Patient discharged on 2 or more antipsychotic medications: No Procedures - Procedures Procedures: Medication Management, Crisis Stabilization, Supportive Therapy, Group Therapy, Psychoeducational Therapy
== END 2018-02-14 14:10 | disposition home or self-care (01) | DRG 751 ==
LOC: EMEROO 00:39 → 1ANU 03:37 → SUATTDRO 03:37 → 1ANU 03:47
PROVIDERS: ADMIT Psychiatry & Neurology Psychiatry; ATTEND Psychiatry & Neurology Psychiatry

== ENCOUNTER 2019-08-18 19:15 | Inpatient (IN) ==
[2019-08-18 19:42] LABS: Hemoglobin 15.8 g/dL (12.9-16.9); Mean Corpuscular HGB Conc 35.1 g/dL (31.6-35.5); Mean Corpuscular Hemoglobin 31.2 pg (28.0-33.3); Mean Corpuscular Volume 88.8 fL (83.0-100.0); Mean Platelet Volume 10.4 fL (9.4-12.4); Platelet Count 239 K/mcL (140-400); Red Blood Count 5.07 M/mcL (4.19-5.50); White Blood Count 8.8 K/mcL (4.3-11.1)
[2019-08-18 19:49] LABS: Prothrombin Time 11.4 Seconds (9.4-12.1)
[2019-08-18 19:52] LABS: Activated Partial Thrombo Time 33.1 Seconds (26.0-36.0)
[2019-08-18 20:01] LABS: BUN/Creatinine Ratio 19 (6-26); Blood Urea Nitrogen 15 mg/dL (6-20); Calcium 9.2 mg/dL (8.6-10.3); Carbon Dioxide 22 mEq/L (23-29); Chloride 103 mEq/L (98-107); Glucose 158 mg/dL (70-105); Osmolality,Calculated 290 (280-300); Potassium 3.4 mEq/L (3.5-5.1); Sodium 138 mEq/L (136-145); eGFR For African Americans > 60 (> 60); eGFR For Non-African Americans > 60 (> 60)
[2019-08-18 20:03] LABS: Troponin I < 0.03 ng/mL (< 0.04)
[2019-08-18] MEDS: *HR* Metoprolol 5 MG/5 ML VIAL IVP ONE ×2 (20:42→20:47)
[2019-08-18 21:14] LABS: Ethanol 43 mg/dL (Less than 10)
[2019-08-18 21:20] LABS: Amphetamine Screen,Urine Negative ng/mL (Cutoff=1000); Barbiturate Screen,Urine Negative ng/mL (Cutoff=200); Benzodiazepines Screen,Urine Negative ng/mL (Cutoff=200); Cannabinoid Screen,Urine Negative ng/mL (Cutoff = 50); Cocaine Screen,Urine Negative ng/mL (Cutoff= 300); Opiate Screen,Urine Negative ng/mL (Cutoff=300); Phencyclidine Screen,Urine Negative ng/mL (Cutoff=25)
[2019-08-18 23:24] LABS: Valproate < 4 mcg/mL (50-100)
[2019-08-18] MEDS: cloNIDine HCl 0.1 MG TABLET PO SCH (23:50)
[2019-08-18] MEDS: Propranolol LA (24 HR) 80 MG CAP.SA.24H PO SCH (23:50)
[2019-08-19] MEDS ORDERED: MOM Conc 10 ML UD.LIQ PO PRN (01:25)
[2019-08-19] MEDS ORDERED: *HR* LORazepam 1 MG TABLET PO PRN (01:25)
[2019-08-19] MEDS ORDERED: Nicotine 2 MG GUM BC PRN (01:25)
[2019-08-19] MEDS ORDERED: *HR* LORazepam 2 MG/ML VIAL IM PRN (01:25)
[2019-08-19] MEDS ORDERED: Ibuprofen 400 MG TABLET PO PRN (01:25)
[2019-08-19] MEDS ORDERED: Haloperidol Lactate 5 MG/ML VIAL IM PRN (01:25)
[2019-08-19] MEDS ORDERED: Mag Hydrox/Al Hydrox/Simeth 30 ML UDC PO PRN (01:25)
[2019-08-19] MEDS ORDERED: hydrOXYzine pamoate 25 MG CAPSULE PO PRN (01:57)
[2019-08-19] MEDS: traZODone 50 MG TABLET PO PRN (01:59)
[2019-08-19] MEDS ORDERED: risperiDONE 1 MG TABLET PO SCH (09:00)
[2019-08-19] MEDS: Divalproex (12 HR) 500 MG TABLET PO SCH ×2 (09:26→21:38)
[2019-08-19] MEDS ORDERED: Venlafaxine XR (24 HR) 75 MG CAP.ER.24H PO SCH (09:30)
[2019-08-19] MEDS: hydrOXYzine pamoate 25 MG CAPSULE PO SCH ×3 (12:05→21:37)
[2019-08-19] MEDS: Propranolol LA (24 HR) 80 MG CAP.SA.24H PO SCH ×2 (12:23→21:39)
[2019-08-19] MEDS: cloNIDine HCl 0.1 MG TABLET PO SCH (21:38)
[2019-08-19] MEDS: risperiDONE 1 MG TABLET PO SCH (21:38)
[2019-08-20] MEDS: traZODone 50 MG TABLET PO PRN (00:57)
[2019-08-20] MEDS: hydrOXYzine pamoate 25 MG CAPSULE PO SCH ×3 (08:53→21:04)
[2019-08-20] MEDS: Divalproex (12 HR) 500 MG TABLET PO SCH ×2 (08:53→21:04)
[2019-08-20 09:51] LABS: Estimated Average Glucose 111 mg/dl
[2019-08-20 10:13] LABS: Thyroid Stimulating Hormone 1.031 mcIU/mL (0.340-5.600)
[2019-08-20] MEDS: PARoxetine 20 MG TABLET PO SCH (12:33)
[2019-08-20] MEDS: Propranolol LA (24 HR) 80 MG CAP.SA.24H PO SCH (21:04)
[2019-08-20] MEDS: cloNIDine HCl 0.1 MG TABLET PO SCH (21:04)
[2019-08-20] MEDS: risperiDONE 1 MG TABLET PO SCH (21:04)
[2019-08-21] MEDS: PARoxetine 20 MG TABLET PO SCH (08:42)
[2019-08-21] MEDS: Divalproex (12 HR) 500 MG TABLET PO SCH (08:42)
[2019-08-21] MEDS: hydrOXYzine pamoate 25 MG CAPSULE PO SCH (08:43)
[2019-08-21 08:53] VITALS: BP 107/71
[2019-08-21] MEDS ORDERED: FLU Vac QV 19-20 (6Month+)/PF 0.5 ML SYRINGE IM ONE (11:06)
== END 2019-08-21 12:25 | disposition home or self-care (01) | DRG 751 ==
LOC: 1ANU 19:15 → EMEROOARM 19:15 → 1ANU 08-19 00:11
PROVIDERS: ADMIT Psychiatry & Neurology Psychiatry; ATTEND Psychiatry & Neurology Psychiatry

== ENCOUNTER 2020-09-26 16:52 | Inpatient (IN) ==
[2020-09-26 17:24] LABS: Basophils # 0.1 K/mcL (0.0-0.2); Basophils % 0.7 %; Eosinophils # 0.1 K/mcL (0.0-0.6); Eosinophils % 0.7 %; Hematocrit 46.3 % (37.5-50.1); Hemoglobin 15.6 g/dL (12.9-16.9); Immature Granulocytes % 0.4 % (0-4); Lymphocytes # 2.3 K/mcL (0.6-4.6); Lymphocytes % 18.8 %; Mean Corpuscular HGB Conc 33.7 g/dL (31.6-35.5); Mean Platelet Volume 10.1 fL (9.4-12.4); Neutrophils # 8.6 K/mcL (1.6-8.9); Platelet Count 330 K/mcL (140-400); Red Cell Distribution Width 12.4 % (11.5-14.5); Segmented Neutrophils % 71.4 %; White Blood Count 12.1 K/mcL (4.3-11.1)
[2020-09-26 17:45] LABS: Acetaminophen < 10 mcg/mL (10-20); BUN/Creatinine Ratio 18 (6-26); Blood Urea Nitrogen 17 mg/dL (6-20); Calcium 9.4 mg/dL (8.6-10.3); Carbon Dioxide 27 mEq/L (23-29); Chloride 100 mEq/L (98-107); Chol/HDL Ratio 3.9 (0-4.9); Cholesterol 171 mg/dL (< 200); Ethanol < 10 mg/dL (Less than 10); Glucose 108 mg/dL (70-105); HDL Cholesterol 44 mg/dL (40-59); LDL Cholesterol,Calculated 118 mg/dL (< 100); Osmolality,Calculated 280 (280-300); Potassium 3.6 mEq/L (3.5-5.1); Salicylate < 2.5 mg/dL (15.0-30.0); Sodium 134 mEq/L (136-145); Triglycerides 45 mg/dL (< 150); eGFR For African Americans > 60 (> 60); eGFR For Non-African Americans > 60 (> 60)
[2020-09-26 17:58] LABS: Amphetamine Screen,Urine Negative ng/mL (Cutoff=1000); Barbiturate Screen,Urine Negative ng/mL (Cutoff=200); Benzodiazepines Screen,Urine Negative ng/mL (Cutoff=200); Cannabinoid Screen,Urine Negative ng/mL (Cutoff = 50); Cocaine Screen,Urine Negative ng/mL (Cutoff= 300); Opiate Screen,Urine Negative ng/mL (Cutoff=300); Phencyclidine Screen,Urine Negative ng/mL (Cutoff=25)
[2020-09-26 18:05] LABS: Bilirubin,Urine Negative (Negative); Blood,Urine Negative (Negative); Clarity,Urine Clear (Clear); Color,Urine Light-Yellow (Yellow); Glucose,Urine (UA) Normal (Normal); Ketones,Urine Negative (Negative); Leukocyte Esterase,Urine Negative (Negative); Nitrite,Urine Negative (Negative); PH,Urine 6.5 pH Units (5.0-8.0); Protein,Urine Negative (Neg-Trace); Specific Gravity,Urine 1.014 (1.010-1.025); Urobilinogen,Urine Normal (Normal)
[2020-09-26 18:46] LABS: Estimated Average Glucose 105 mg/dl; Hemoglobin A1C 5.3 %
[2020-09-26] MEDS ORDERED: haloperidoL 5 MG TABLET PO PRN (21:55)
[2020-09-26] MEDS ORDERED: Mag Hydrox/Al Hydrox/Simeth 30 ML UDC PO PRN (21:55)
[2020-09-26] MEDS ORDERED: MOM Conc 10 ML UD.LIQ PO PRN (21:55)
[2020-09-26] MEDS ORDERED: Haloperidol Lactate 5 MG/ML VIAL IM PRN (21:55)
[2020-09-26] MEDS ORDERED: *HR* LORazepam 1 MG TABLET PO PRN (21:55)
[2020-09-26] MEDS ORDERED: *HR* LORazepam 2 MG/ML VIAL IM PRN (21:55)
[2020-09-26] MEDS: hydrOXYzine pamoate 25 MG CAPSULE PO PRN (23:40)
[2020-09-26] MEDS: Ibuprofen 400 MG TABLET PO PRN (23:40)
[2020-09-26] MEDS: traZODone 50 MG TABLET PO PRN (23:40)
[2020-09-27] MEDS ORDERED: Propranolol LA (24 HR) 80 MG CAP.SA.24H PO SCH (11:30)
[2020-09-27] MEDS: Nicotine 21 MG PATCH.TD24 TD SCH (12:01)
[2020-09-27] MEDS: Divalproex (24 HR) 500 MG TABLET PO SCH ×2 (12:01→20:53)
[2020-09-27] MEDS: hydrOXYzine pamoate 25 MG CAPSULE PO PRN (12:59)
[2020-09-27] MEDS: cloNIDine HCL 0.1 MG TABLET PO SCH (20:53)
[2020-09-27] MEDS: traZODone 50 MG TABLET PO PRN (20:54)
[2020-09-27] MEDS: risperiDONE 1 MG TABLET PO SCH (20:54)
[2020-09-27] MEDS: Ibuprofen 400 MG TABLET PO PRN (20:56)
[2020-09-28] MEDS: Nicotine 21 MG PATCH.TD24 TD SCH (08:02)
[2020-09-28] MEDS: Divalproex (24 HR) 500 MG TABLET PO SCH ×2 (08:02→20:13)
[2020-09-28] MEDS: Ibuprofen 400 MG TABLET PO PRN (14:26)
[2020-09-28] MEDS: hydrOXYzine pamoate 25 MG CAPSULE PO PRN (14:27)
[2020-09-28] MEDS ORDERED: cloNIDine HCL 0.1 MG TABLET PO PRN (14:27)
[2020-09-28] MEDS: Baclofen 10 MG TABLET PO PRN (16:24)
[2020-09-28] MEDS: risperiDONE 1 MG TABLET PO SCH (20:13)
[2020-09-28] MEDS: cloNIDine HCL 0.1 MG TABLET PO SCH (20:13)
[2020-09-29] MEDS: Nicotine 21 MG PATCH.TD24 TD SCH (08:49)
[2020-09-29] MEDS: Baclofen 10 MG TABLET PO PRN (08:50)
[2020-09-29] MEDS: Ibuprofen 400 MG TABLET PO PRN (08:50)
[2020-09-29] MEDS: Propranolol LA (24 HR) 60 MG CAP.SA.24H PO SCH (08:51)
[2020-09-29] MEDS: Divalproex (24 HR) 500 MG TABLET PO SCH ×2 (08:51→21:01)
[2020-09-29] MEDS: hydrOXYzine pamoate 25 MG CAPSULE PO PRN ×2 (14:52→21:03)
[2020-09-29] MEDS: cloNIDine HCL 0.1 MG TABLET PO SCH (21:02)
[2020-09-29] MEDS: risperiDONE 1 MG TABLET PO SCH (21:02)
[2020-09-29] MEDS: traZODone 50 MG TABLET PO PRN (21:03)
[2020-09-30] MEDS: Ibuprofen 400 MG TABLET PO PRN (08:14)
[2020-09-30] MEDS: Baclofen 10 MG TABLET PO PRN (08:14)
[2020-09-30] MEDS: Nicotine 21 MG PATCH.TD24 TD SCH (08:15)
[2020-09-30] MEDS: Propranolol LA (24 HR) 60 MG CAP.SA.24H PO SCH (08:15)
[2020-09-30] MEDS: Divalproex (24 HR) 500 MG TABLET PO SCH (08:15)
[2020-09-30 08:21] VITALS: BP 135/87
== END 2020-09-30 12:05 | disposition home or self-care (01) | DRG 751 ==
LOC: EMEROOARM 16:52 → 1ANU 21:32
PROVIDERS: ADMIT Psychiatry & Neurology Psychiatry; ATTEND Psychiatry & Neurology Psychiatry

== ENCOUNTER 2021-03-01 11:41 | Observation (INO) ==
[2021-03-01] MEDS ORDERED: 0.9 % Sodium Chloride 1,000 ML IVC ONE (12:19)
[2021-03-01 12:53] LABS: Basophils % 0.4 %; Hematocrit 40.2 % (37.5-50.1); Hemoglobin 13.9 g/dL (12.9-16.9); Immature Granulocytes % 0.2 % (0-4); Lymphocytes # 2.3 K/mcL (0.6-4.6); Lymphocytes % 25.1 %; Mean Corpuscular HGB Conc 34.6 g/dL (31.6-35.5); Mean Corpuscular Hemoglobin 30.3 pg (28.0-33.3); Mean Corpuscular Volume 87.8 fL (83.0-100.0); Monocytes # 1.2 K/mcL (0.0-1.3); Monocytes % 13.5 %; Neutrophils # 5.5 K/mcL (1.6-8.9); Platelet Count 236 K/mcL (140-400); Red Blood Count 4.58 M/mcL (4.19-5.50); Red Cell Distribution Width 12.5 % (11.5-14.5); Segmented Neutrophils % 60.8 %
[2021-03-01 13:15] LABS: Acetaminophen < 10 mcg/mL (10-20); BUN/Creatinine Ratio 23 (6-26); Blood Urea Nitrogen 32 mg/dL (6-20); Calcium 9.4 mg/dL (8.6-10.3); Carbon Dioxide 24 mEq/L (23-29); Chloride 93 mEq/L (98-107); Ethanol < 10 mg/dL (Less than 10); Glucose 88 mg/dL (70-105); Osmolality,Calculated 280 (280-300); Potassium 3.5 mEq/L (3.5-5.1); Salicylate < 2.5 mg/dL (15.0-30.0); Sodium 132 mEq/L (136-145); eGFR For African Americans > 60 (> 60); eGFR For Non-African Americans 56 (> 60)
[2021-03-01 13:31] LABS: Influenza A PCR Negative (Negative); Influenza B PCR Negative (Negative); Resp. Syncytial Virus PCR Negative (Negative)
[2021-03-01] MEDS ORDERED: Ringers Solution, Lactated 1,000 ML IVC ONE (13:34)
[2021-03-01 13:49] LABS: SARS-CoV-2 by PCR (In House) Positive (Negative)
[2021-03-01 13:51] LABS: Bilirubin,Urine Negative (Negative); Blood,Urine Small (Negative); Clarity,Urine Clear (Clear); Color,Urine Light-Yellow (Yellow); Glucose,Urine (UA) Normal (Normal); Ketones,Urine Trace mg/dL (Negative); Leukocyte Esterase,Urine Negative (Negative); Mucus,Urine Few per lpf (None-Few); Nitrite,Urine Negative (Negative); PH,Urine 5.5 pH Units (5.0-8.0); Protein,Urine Negative (Neg-Trace); RBC,Urine 0-3 per hpf (0-3); Specific Gravity,Urine 1.022 (1.010-1.025); Urobilinogen,Urine Normal (Normal); WBC,Urine 0-3 per hpf (0-3)
[2021-03-01 13:57] LABS: Amphetamine Screen,Urine Positive ng/mL (Cutoff=1000); Barbiturate Screen,Urine Negative ng/mL (Cutoff=200); Benzodiazepines Screen,Urine Negative ng/mL (Cutoff=200); Cannabinoid Screen,Urine Negative ng/mL (Cutoff = 50); Cocaine Screen,Urine Negative ng/mL (Cutoff= 300); Opiate Screen,Urine Negative ng/mL (Cutoff=300); Phencyclidine Screen,Urine Negative ng/mL (Cutoff=25)
[2021-03-01] MEDS ORDERED: Ketorolac 15 MG/ML VIAL IVP ONE (14:10)
[2021-03-01] MEDS ORDERED: Ondansetron 4 MG/2 ML VIAL IVP PRN (14:22)
[2021-03-01] MEDS ORDERED: Naloxone 0.4 MG/ML INJ IVP PRN (14:22)
[2021-03-01] MEDS ORDERED: *HR* Promethazine 25 MG/ML VIAL IM PRN (14:22)
[2021-03-01] MEDS ORDERED: Acetaminophen 325 MG TABLET PO PRN (14:22)
[2021-03-01] MEDS ORDERED: hydrOXYzine pamoate 25 MG CAPSULE PO PRN (17:13)
[2021-03-01] MEDS: Melatonin 3 MG TABLET PO PRN (21:13)
[2021-03-01] MEDS: risperiDONE 1 MG TABLET PO SCH (21:13)
[2021-03-02 01:07] LABS: Basophils % 0.2 %; Eosinophils % 0.4 %; Hematocrit 33.6 % (37.5-50.1); Hemoglobin 11.9 g/dL (12.9-16.9); Immature Granulocytes % 0.2 % (0-4); Lymphocytes # 1.6 K/mcL (0.6-4.6); Lymphocytes % 19.4 %; Mean Corpuscular HGB Conc 35.4 g/dL (31.6-35.5); Mean Corpuscular Hemoglobin 31.3 pg (28.0-33.3); Mean Corpuscular Volume 88.4 fL (83.0-100.0); Mean Platelet Volume 10.3 fL (9.4-12.4); Monocytes % 11.4 %; Neutrophils # 5.8 K/mcL (1.6-8.9); Platelet Count 183 K/mcL (140-400); Red Cell Distribution Width 12.6 % (11.5-14.5); Segmented Neutrophils % 68.4 %; White Blood Count 8.5 K/mcL (4.3-11.1)
[2021-03-02 01:16] LABS: Prothrombin Time 11.8 Seconds (9.4-12.1)
[2021-03-02 01:28] LABS: Alanine Aminotransferase 49 Units/L (7-52); Albumin 3.4 g/dL (3.5-5.7); Albumin/Globulin Ratio 1.9 (1.1-2.2); Alkaline Phosphatase 42 Units/L (34-104); Aspartate Amino Transferase 124 Units/L (13-39); BUN/Creatinine Ratio 27 (6-26); Bilirubin,Total 0.6 mg/dL (0.3-1.0); Blood Urea Nitrogen 29 mg/dL (6-20); C-Reactive Protein 86 mg/L (Less than 10); Calcium 7.8 mg/dL (8.6-10.3); Carbon Dioxide 28 mEq/L (23-29); Chloride 99 mEq/L (98-107); Globulin 1.8 g/dL (2.4-3.5); Glucose 136 mg/dL (70-105); Lactate Dehydrogenase 415 Units/L (140-271); Magnesium 2.1 mg/dL (1.6-2.6); Osmolality,Calculated 288 (280-300); Phosphorous 3.2 mg/dL (2.7-4.5); Potassium 3.4 mEq/L (3.5-5.1); Sodium 135 mEq/L (136-145); Total Protein 5.2 g/dL (6.4-8.9); eGFR For African Americans > 60 (> 60); eGFR For Non-African Americans > 60 (> 60)
[2021-03-02 01:46] LABS: Ferritin 286 ng/mL (20-250)
[2021-03-02] MEDS: *HR* Enoxaparin 40 MG/0.4 ML SYRINGE SQ SCH (05:07)
[2021-03-02 07:14] LABS: Protein/Creatinine Ratio,Urine 0.08 mg/mg (0.00-0.20); Sodium, Urine 32.5 mEq/L
[2021-03-02] MEDS: Propranolol LA (24 HR) 60 MG CAP.SA.24H PO SCH (08:11)
[2021-03-02] MEDS: levoFLOXacin 750 MG TABLET PO SCH (11:06)
[2021-03-02] MEDS: Divalproex (24 HR) 500 MG TABLET PO SCH ×2 (11:06→21:50)
[2021-03-02] MEDS ORDERED: Nicotine 2 MG GUM BC PRN (13:56)
[2021-03-02] MEDS: Nicotine 21 MG PATCH.TD24 TD SCH (14:28)
[2021-03-02] MEDS: risperiDONE 1 MG TABLET PO SCH (21:50)
[2021-03-02] MEDS: Melatonin 3 MG TABLET PO PRN (22:38)
[2021-03-03 01:51] LABS: BUN/Creatinine Ratio 12 (6-26); Blood Urea Nitrogen 9 mg/dL (6-20); Calcium 7.9 mg/dL (8.6-10.3); Carbon Dioxide 29 mEq/L (23-29); Chloride 104 mEq/L (98-107); Glucose 112 mg/dL (70-105); Osmolality,Calculated 287 (280-300); Potassium 4.2 mEq/L (3.5-5.1); Sodium 139 mEq/L (136-145); eGFR For African Americans > 60 (> 60); eGFR For Non-African Americans > 60 (> 60)
[2021-03-03] MEDS: *HR* Enoxaparin 40 MG/0.4 ML SYRINGE SQ SCH (05:31)
[2021-03-03] MEDS: Divalproex (24 HR) 500 MG TABLET PO SCH (08:07)
[2021-03-03] MEDS: Propranolol LA (24 HR) 60 MG CAP.SA.24H PO SCH (08:07)
[2021-03-03] MEDS: Nicotine 21 MG PATCH.TD24 TD SCH (08:07)
[2021-03-03] MEDS: levoFLOXacin 750 MG TABLET PO SCH (08:07)
[2021-03-03 10:46] VITALS: BP 110/68; PULSE 90; TEMP 100.2; O2SAT 95
== END 2021-03-03 14:05 | disposition home or self-care (01) ==
LOC: 3BNU 11:41 → EMEROOARM 11:41 → SUATTDRO 14:51 → 3BNU 15:37
PROVIDERS: ADMIT Internal Medicine; ATTEND Internal Medicine